=== PATIENT | female | born 1955 | race African-American/Black ===

== ENCOUNTER → 2020-04-24 | Outpatient (CLI) | payer MEDICARE, MEDICAID ==
[~2020-04-24] MED LIST: AMLO10TA80 PO; ASCO500C6 PO; BENA20TA10 PO; DOCU-138 PO; FLUT1AER IH; GABA-290 PO; IBUP-2030 PO; LEVO500T89 PO; OCD PO; OMEP20CA14 PO; P20 PO
== END | disposition home or self-care (01) ==
LOC: LAB 09:22
PROVIDERS: ATTEND Internal Medicine Gastroenterology
DX: Z01.812 Encounter for preprocedural laboratory examination (principal); Z20.828 Contact with and (suspected) exposure to other viral communicable diseases
CPT/HCPCS: C9803; U0003

== ENCOUNTER 2020-04-26 09:05 | Day surgery (SDC) | payer MEDICARE, MEDICAID ==
[~2020-04-26] VITALS: Ht 160 cm; Wt 72.6 kg
[2020-04-26] MEDS ORDERED: METOCLOPRAMIDE HCL 10MG/2ML VIAL IV NR (09:50)
[2020-04-26] MEDS ORDERED: LACTATED RINGERS 1,000 ML IV SCH (10:00)
[2020-04-26 10:21] LABS: HEMATOCRIT 44.3 % (36.0-48.0); HEMOGLOBIN 14.4 g/dL (12.0-16.0); MEAN CORPUSCULAR HEMOGLOBIN 29.2 pg (28.0-32.0); MEAN CORPUSCULAR VOLUME 89.9 fL (81.0-99.0); PLATELET 289 x1000/uL (130-400); RED BLOOD CELL COUNT 4.93 mill/uL (4.2-5.4); RED CELL DISTRIBUTION WIDTH 14.3 % (11.6-14.6)
[2020-04-26] MEDS ORDERED: EPHEDRINE SULFATE 50MG/ML VIAL ONE (11:55)
[2020-04-26] MEDS ORDERED: ERGO2000 PO (11:56)
== END 2020-04-26 14:30 | disposition home or self-care (01) ==
LOC: OR 09:05
PROVIDERS: ATTEND Internal Medicine Gastroenterology
DX: K21.9 Gastro-esophageal reflux disease without esophagitis (principal); R13.10 Dysphagia, unspecified; R12 Heartburn; K52.9 Noninfective gastroenteritis and colitis, unspecified; K44.9 Diaphragmatic hernia without obstruction or gangrene; K57.30 Diverticulosis of large intestine without perforation or abscess without bleeding; R11.10 Vomiting, unspecified; K29.50 Unspecified chronic gastritis without bleeding; K31.89 Other diseases of stomach and duodenum; K63.89 Other specified diseases of intestine; I10 Essential (primary) hypertension; J44.9 Chronic obstructive pulmonary disease, unspecified; M19.90 Unspecified osteoarthritis, unspecified site; M81.0 Age-related osteoporosis without current pathological fracture; F17.210 Nicotine dependence, cigarettes, uncomplicated; Z87.19 Personal history of other diseases of the digestive system; Z79.899 Other long term (current) drug therapy; Z98.890 Other specified postprocedural states; Z82.49 Family history of ischemic heart disease and other diseases of the circulatory system
CPT/HCPCS: 36415; 43239; 45380; 80048; 85027; 88305; 88313; 93005; J2765; J3490